=== PATIENT | male | born 1980 | race American Indian/Alaskan Native ===

== ENCOUNTER 2019-03-17 08:29 | Emergency (ER) | payer SELFPAY ==
[2019-03-17 08:47] VITALS: BP 145/80
--- NOTE | 2019-03-17 09:39 | Emergency Department Report ---
ED Abdominal Pain HPI - General Chief Complaint: Abdominal Pain Stated Complaint: ABD PAIN/NAUSEA/NO APPETITE Time Seen by Provider: 03/17/19 09:32 Source: patient Mode of arrival: Ambulatory Limitations: No Limitations - History of Present Illness Initial Comments: Patient is a 39 years old male with no significant past medical history. Patient presented to the ER complaining of epigastric abdominal pain for the last 3 weeks. Patient describes his pain as sharp and sometimes burning sensation. The pain increases after eating. Patient stated that he went to an urgent care this morning and he was given a GI cocktail and he stated that it resolved his symptoms completely but he is worried about his symptoms also. Patient denied any fever or chills, no diarrhea but he have constipation. MD Complaint: abdominal pain -: week(s) (3) - Related Data Allergies Allergy/AdvReac Type Severity Reaction Status Date / Time No Known Allergies Allergy Unverified 03/17/19 08:30 ED Review of Systems ROS: Stated complaint: ABD PAIN/NAUSEA/NO APPETITE Other details as noted in HPI Comment: All other systems reviewed and negative Respiratory: denies: cough, shortness of breath Cardiovascular: denies: chest pain Gastrointestinal: abdominal pain. denies: nausea, vomiting Musculoskeletal: denies: back pain Neurological: denies: headache, weakness ED Past Medical Hx - Past Medical History Previous Medical History?: No - Surgical History Past Surgical History?: No - Social History Smoking Status: Current Every Day Smoker Substance Use Type: None ED Physical Exam - General Limitations: No Limitations General appearance: alert, in no apparent distress - Head Head exam: Present: atraumatic, normocephalic - Eye Eye exam: Present: normal appearance - ENT ENT exam: Present: normal exam, normal orophraynx, mucous membranes moist - Neck Neck exam: Present: normal inspection - Respiratory Respiratory exam: Present: normal lung sounds bilaterally - Cardiovascular Cardiovascular Exam: Present: regular rate, normal rhythm, normal heart sounds - GI/Abdominal GI/Abdominal exam: Present: soft, normal bowel sounds. Absent: distended, tenderness, guarding, rebound, rigid, organomegaly, mass, bruit, pulsatile mass, hernia - Extremities Exam Extremities exam: Present: normal inspection, full ROM, normal capillary refill - Back Exam Back exam: Present: normal inspection, full ROM. Absent: CVA tenderness (R), CVA tenderness (L), muscle spasm, paraspinal tenderness, vertebral tenderness - Neurological Exam Neurological exam: Present: alert, oriented X3, CN II-XII intact, normal gait, reflexes normal - Skin Skin exam: Present: warm, intact, normal color ED Course Vital Signs 03/17/19 08:45 Temperature 98.7 F Pulse Rate 96 H Respiratory 16 Rate Blood Pressure 145/80 O2 Sat by Pulse 99 Oximetry ED Medical Decision Making - Lab Data Result diagrams: 03/17/19 09:15 03/17/19 09:15 - Radiology Data Radiology results: report reviewed X-ray abdominal series is negative for acute finding. - Medical Decision Making Patient is a 39 years old male with no significant past medical history. Patient presented to the ER complaining of epigastric abdominal pain for the las t 3 weeks. Patient describes his pain as sharp and sometimes burning sensation. The pain increases after eating. Patient stated that he went to an urgent care this morning and he was given a GI cocktail and he stated that it resolved his symptoms completely but he is worried about his symptoms also. Patient denied any fever or chills, no diarrhea but he have constipation. Patient remained asymptomatic. Labs reviewed and is unremarkable. Chest x-ray, abdominal series is negative for acute finding. I believe patient's symptoms is most likely related to gastritis versus gastric ulcer. I will start patient on Nexium and advised to follow-up with his primary care physician in the next 2-3 days and to return to the ER if symptoms are not improved Critical care attestation.: If time is entered above; I have spent that time in minutes in the direct care of this critically ill patient, excluding procedure time. ED Disposition Clinical Impression: Abdominal pain, Gastritis Disposition: - TO HOME OR SELFCARE Is pt being admited?: No Condition: Stable Instructions: Abdominal Pain (ED), Gastritis (ED) Referrals: TANIA PAULINO MD [Primary Care Provider] - 3-5 Days
[2019-03-17 09:50] LABS: BUN/Creatinine Ratio 13; Blood Urea Nitrogen 10 mg/dL (9-20); Calcium 8.9 mg/dL (8.4-10.2)
[2019-03-17 09:51] LABS: Alanine Aminotransferase 15 units/L (7-56); Albumin 4.3 g/dL (3.9-5); Hemolysis Index 51
--- NOTE | 2019-03-17 09:58 | XRay Report ---
ABDOMINAL SERIES: History: Abdominal pain. Erect chest film shows no acute or significant changes involving the heart or lung josue. There is no evidence of free air beneath the diaphragms. The gas pattern within the abdomen is unremarkable. There is no evidence of bowel dilatation, significant air-fluid levels, or masses. Organ shadows are unremarkable. IMPRESSION: Abdominal series within normal limits.
[2019-03-17 10:02] LABS: Basophils % (Auto) 0.2 % (0.0-1.8); Eosinophils % (Auto) 0.6 % (0.0-4.3); Hematocrit 46.7 % (35.5-45.6); Hemoglobin 16.1 gm/dl (11.8-15.2); Lymphocytes # (Auto) 1.4 K/mm3 (1.2-5.4); Mean Corpuscular HGB Conc 35 % (32-34); Mean Corpuscular Volume 97 fl (84-94); Monocytes # (Auto) 0.7 K/mm3 (0.0-0.8); Monocytes % (Auto) 10.3 % (0.0-7.3); Platelet Count 241 K/mm3 (140-440); Red Blood Count 4.82 M/mm3 (3.65-5.03); Red Cell Distribution Width 14.2 % (13.2-15.2)
== END 2019-03-17 10:41 | disposition home or self-care (01) ==
LOC: ED 08:29
DX: K29.70 Gastritis, unspecified, without bleeding (principal); F17.200 Nicotine dependence, unspecified, uncomplicated
CPT/HCPCS: 36415; 74022; 80053; 85025